=== PATIENT | female | born 1935 | race Caucasian/White ===

== ENCOUNTER → 2020-08-22 | Emergency (ER) | payer MEDICARE, BC ==
[~2020-08-22] VITALS: Ht 147.3 cm; Wt 52.3 kg
[2020-08-22 22:00] VITALS: TEMP 98
[2020-08-23 00:20] VITALS: BP 150/60; PULSE 80
== END ==
LOC: COL.ER 21:56
DX: S09.90XA Unspecified injury of head, initial encounter (principal); S00.03XA Contusion of scalp, initial encounter; R40.2410 Glasgow coma scale score 13-15, unspecified time; W01.10XA Fall on same level from slipping, tripping and stumbling with subsequent striking against unspecified object, initial encounter